=== PATIENT | male | born 1990 | race Caucasian/White ===

== ENCOUNTER 2019-10-19 12:29 | Emergency (ER) | payer OTHER, SELFPAY ==
--- NOTE | ~2019-10-19 | XR_ITS ---
EXAMINATION: XR chest 1V portable EXAM DATE: 10/19/2019 13:36 INDICATION: Vomiting blood. Abdominal pain, diarrhea since Saturday. Dizziness. TECHNIQUE: Portable AP frontal chest x-ray was obtained. There is no prior study for comparison. FINDINGS: The lungs are clear. There are no pleural effusions. The cardiomediastinal silhouette is within normal limits. There is no pneumothorax suspected. The bones and soft tissues are unremarkab le. IMPRESSION: No acute cardiopulmonary findings. Reviewed, dictated and finalized at location A.
[2019-10-19 12:43] VITALS: BP 135/70; PULSE 82; RESP 16; TEMP 36; O2SAT 97
[2019-10-19 13:22] LABS: Basophils Absolute Auto 0.1 K/mm3 (0.0-0.1); Hematocrit 42.9 % (42.0-52.0); Immature Granulocyte Absolute 0.03 K/mm3 (0.00-0.031); Immature Granulocyte Percent A 0.4 % (0-0.5); Lymphocytes Absolute Auto 1.93 K/mm3 (0.9-3.2); Lymphocytes Percent Auto 23.4 % (18.3-44.2); Mean Platelet Volume 10.1 fl (7.4-10.4); Monocytes Absolute Auto 0.6 K/mm3 (0.1-0.6); Neutrophils Absolute Auto 4.6 K/mm3 (1.3-6.7); Neutrophils Percent Auto 56.2 % (45.5-73.1); Platelet Count Result 205 k/mm3 (150-375); Red Blood Count 5.17 M/mm3 (4.6-6.20); Red Cell Distribution Width 11.9 % (11.5-14.5); White Blood Count 8.3 K/mm3 (4.5-10.0)
[2019-10-19 13:23] LABS: Add Urine Microscopic? NO; Appearance Urine Clear (Clear); Bilirubin Urine Negative (Negative); Blood Urine Negative (Negative); Color Urine Straw (Yellow); Glucose Urine UA Negative (Negative); Ketones Urine Negative (Negative); Leukocyte Esterase Ur Negative LEU/UL (Negative); Nitrate Urine Negative (Negative); Protein Urine Negative (Negative); Specific Grav Ur 1.015 (1.001-1.035); Urobilinogen Urine Negative mg/dL (<2.0)
[2019-10-19 13:33] LABS: Alanine Aminotransferase 18 U/L (4-50); Albumin Level 4.4 g/dL (3.5-5.1); Alkaline Phosphatase 94 U/L (38-126); Aspartate Amino Transferase 24 U/L (17-59); Bilirubin,Total 0.2 mg/dL (0.2-1.3); Blood Urea Nitrogen 13 mg/dL (9-20); Calcium 8.7 mg/dL (8.4-10.2); Carbon Dioxide 26 mmol/L (22-30); Chloride 105 mmol/L (98-107); Estimated CRCL calculation 167 ml/min; Estimated Glomerular Filt Rate > 60; Glucose 99 mg/dL (75-110); Lipase 215 U/L (23-300); Sodium 140 mmol/L (137-145)
[2019-10-19 13:40] VITALS: BP 129/71; PULSE 63
[2019-10-19 13:42] VITALS: BP 124/78; PULSE 87
[2019-10-19 13:44] VITALS: BP 125/77; PULSE 81
[2019-10-19] MEDS: ONDANSETRON INJ 4 MG/2 ML VIAL IV PUSH (13:44)
[2019-10-19] MEDS: LACTATED RINGERS 1,000 ML 999 ML IV CONT ×3 (13:44→15:34)
--- NOTE | 2019-10-19 14:23 | ED.NAVMDI ---
HPI - Nausea/Vomiting/Diarrhea General Chief complaint: Nausea/Vomiting/Diarrhea Stated complaint: vomiting Time Seen by Provider: 10/19/19 12:58 Source: patient Mode of arrival: ambulatory Limitations: no limitations History of Present Illness HPI Narrative: This patient is a 29 year old male who presents for evaluation of nausea, vomiting and diarrhea. Patient initially developed symptoms on Saturday. He reports nausea, vomiting, dizziness, and diarrhea. He has intermittent abdominal pain described as cramping. His symptoms resolved on Saturday and . Again today, he develop nausea and vomiting. His first bout of emesis today was nonbilious with mucous with blood streaks. His second episode of emesis did not have blood. He denies having blood in his stool, and he develop fever or chills. His also complaining of lightheadedness with standing. MD elicited complaint: nausea, vomiting and diarrhea Related Data Home Medications Medication Instructions Recorded Confirmed Zyrtec 10/19/19 10/19/19 Allergies Allergy/AdvReac Type Severity Reaction Status Date / Time No Known Allergies Allergy Verified 10/19/19 12:47 Review of Systems Review of Systems: All systems reviewed & are unremarkable except as noted in HPI and below Constitutional: Constitutional: Denies chills, Denies fever(s) and Reports weakness ENT: Reports dizziness and Denies nasal congestion Respiratory: Respiratory: Reports cough, Denies dyspnea and Denies wheezing Gastrointestinal: Gastrointestinal: Reports abdominal pain, Reports diarrhea, Reports nausea and Reports vomiting PMFSH Past Medical History Medical History (Updated 10/19/19 @ 16:07 by Helen Mandujano MD) Patient denies medical problems Surgical History Surgical History (Updated 10/19/19 @ 14:24 by Helen Mandujano MD) No pertinent past surgical history Social History Social History (Updated 10/19/19 @ 14:24 by Helen Mandujano MD) Smoking status: Never smoker Alcohol use details: socially Substance use type: marijuana Gender identity (if verbalized by the patient): Male Exam Narrative: Exam Narrative: GENERAL: Well-appearing, well-nourished, and in no acute distress. HEAD: Normocephalic, atraumatic EYES: PERRLA and EOMI, conjunctiva clear without discharge EARS: TM's clear bilaterally without erythema or dullness NOSE: Nares clear, no rhinorrhea or epistaxis THROAT:Mucous membranes moist, Oropharynx normal without erythema, exudate, peritonsillar swelling or fluctuance NECK: Supple, without lymphadenopathy or mass RESPIRATORY: No respiratory distress, Airway patent, Respirations non-labored, Clear to auscultation without rales, rhonchi or wheeze HEART: Regular rate and rhythm. No murmur heard. Normal peripheral pulses. ABDOMEN: Soft, nontender, nondistended, normal active bowel sounds. No masses. No rebound or guarding, No organomegaly. EXTREMITIES: No edema, normal strength with full range of motion. SKIN: Warm, dry, normal color without rash NEURO: Alert and oriented x3. CN 2-12 grossly intact. No focal deficits. PSYCH: Normal mood and affect. Course Reevaluation(s) Reevaluation #1: Patient states he feels better and he will follow up with PCP tomorrow. Date: 10/19/19 Time: 16:06 Vital Signs Vital signs: Vital Signs Temperature 96.8 F L 10/19/19 12:43 Pulse Rate 82 10/19/19 12:43 Respiratory Rate 16 10/19/19 12:43 Blood Pressure 135/70 10/19/19 12:43 Pulse Oximetry 97 10/19/19 12:43 Temperature 97.4 F L 10/19/19 16:34 Pulse Rate 71 10/19/19 16:34 Respiratory Rate 16 10/19/19 16:34 Blood Pressure 136/88 10/19/19 16:34 Pulse Oximetry 97 10/19/19 16:34 MDM - Nausea/Vomiting/Diarrhea Lab Data Result diagrams: 10/19/19 13:13 10/19/19 13:13 Labs: Lab Results 10/19/19 10/19/19 10/19/19 Range/Units 13:13 13:13 13:14 WBC 8.3 (4.5-10.0) K/mm3 RBC
[2019-10-19] MEDS: PANTOPRAZOLE SODIUM IV 40 MG VIAL IV PUSH (14:24)
[2019-10-19 14:50] LABS: INR 0.9; Partial Thromboplastin Time 28.2 SECONDS (22.3-36.8); Prothrombin Time 12.1 Seconds (11.1-14.7)
[2019-10-19] MEDS: MECLIZINE HCL 25 MG TABLET PO (15:34)
[2019-10-19 16:34] VITALS: BP 136/88; PULSE 71; RESP 16; TEMP 36.3; O2SAT 97
== END 2019-10-19 16:37 | disposition home or self-care (01) ==
PROVIDERS: Emergency Provider General Practice; PCP Family Medicine
DX: K52.9 Noninfective gastroenteritis and colitis, unspecified (principal); E86.0 Dehydration
CPT/HCPCS: 36415; 71045; 80053; 81003; 83690; 85025; 85610; 85730; 86850; 86900; 86901; 96361; 96374; 96375; 99284; A9270; C9113; J2405; J7120

== ENCOUNTER 2023-02-07 10:09 | Emergency (ER) | payer OTHER, SELFPAY ==
[2023-02-07] MEDS: SODIUM CHLORIDE 0.9% IV 1,000 ML 999 ML IV CONT (10:38)
[2023-02-07] MEDS: diazePAM INJ (*CRX) 10 MG/2 ML SYRINGE 5 MG IV PUSH (10:39)
[2023-02-07] MEDS: ONDANSETRON INJ 4 MG/2 ML VIAL IV PUSH (10:40)
[2023-02-07 10:46] VITALS: BP 137/87; PULSE 94; RESP 20; TEMP 36.8; O2SAT 100
[2023-02-07 10:57] VITALS: BP 140/101; PULSE 73; RESP 16; O2SAT 100
--- NOTE | 2023-02-07 10:57 | ECG_ITS ---
Measurements Intervals [place] Rate: 70 P: 51 IA: 152 QRS: 28 QRSD: 116 T: 14 QT: 383 QTc: 414 Interpretive Statements SINUS RHYTHM EARLY PRECORDIAL R/S TRANSITION CONSIDER INFERIOR INFARCT, AGE INDETERMINATE ABNORMAL ECG NO PREVIOUS ECG AVAILABLE FOR COMPARISON Electronically Signed On 02-07-2023 11:53:06 CDT by [place] Youssef D.O.
[2023-02-07 12:00] VITALS: BP 133/79; PULSE 73; RESP 16; O2SAT 98
[2023-02-07 13:00] VITALS: BP 139/85; PULSE 80; RESP 16; O2SAT 97
[2023-02-07 13:46] LABS: Basophils Absolute Auto 0.1 K/mm3 (0.0-0.1); Basophils Percent Auto 0.6 % (0.2-1.2); Eosinophils Absolute Auto 0.6 K/mm3 (0-0.3); Eosinophils Percent Auto 5.9 % (0-4.4); Hematocrit 46.9 % (42.0-52.0); Hemoglobin 16.1 g/dL (14.0-18.0); Immature Granulocyte Absolute 0.04 K/mm3 (0.00-0.031); Immature Granulocyte Percent A 0.4 % (0-0.5); Lymphocytes Absolute Auto 1.59 K/mm3 (0.9-3.2); Lymphocytes Percent Auto 16.8 % (18.3-44.2); Mean Corpuscular HGB Conc 34.3 g/dl (32-36); Mean Corpuscular Hemoglobin 29.5 pg (26-34); Mean Corpuscular Volume 85.9 fl (80-100); Mean Platelet Volume 11.5 fl (7.4-10.4); Monocytes Absolute Auto 0.8 K/mm3 (0.1-0.6); Monocytes Percent Auto 8.1 % (2.6-8.5); Neutrophils Absolute Auto 6.5 K/mm3 (1.3-6.7); Neutrophils Percent Auto 68.2 % (45.5-73.1); Platelet Count Result 264 k/mm3 (150-375); Red Blood Count 5.46 M/mm3 (4.6-6.20); White Blood Count 9.5 K/mm3 (4.5-10.0)
[2023-02-07 13:56] LABS: Alanine Aminotransferase 44 U/L (6-50); Albumin Level 4.7 g/dL (3.5-5.1); Alkaline Phosphatase 85 U/L (38-126); Anion Gap 15 mmol/L (8-16); Aspartate Amino Transferase 34 U/L (17-59); Bilirubin,Total 0.7 mg/dL (0.2-1.3); Blood Urea Nitrogen 12 mg/dL (9-20); Calcium 9.6 mg/dL (8.4-10.2); Carbon Dioxide 21 mmol/L (22-30); Chloride 105 mmol/L (98-107); Estimated CRCL calculation 180 ml/min; Estimated Glomerular Filt Rate > 60; Glucose 87 mg/dL (65-110); Potassium 3.5 mmol/L (3.4-5.0); Sodium 141 mmol/L (137-145)
[2023-02-07 14:00] VITALS: BP 136/79; PULSE 85; RESP 18; TEMP 36.7; O2SAT 98
--- NOTE | 2023-02-07 14:13 | ED.DIZZY ---
HPI - Dizziness General Chief Complaint: Dizziness Stated Complaint: vertigo Time Seen by Provider: 02/07/23 11:49 History of Present Illness HPI Narrative: Patient is a 33-year-old male who presents ER with sudden onset dizziness. Has history of BPPV and this felt the same. Associate with diaphoresis as well as nausea vomiting and rhinorrhea. Symptoms are usually worse when he has allergy type symptoms. Reports he tried taking some home meclizine was down for about 30 minutes prior to starting to have dry heaves. No chest pain or chest pressure. No focal weakness or numbness in arm or leg. No slurred speech. Related Data Home Medications Medication Instructions Recorded Confirmed Zyrtec 10/19/19 10/19/19 Allergies Allergy/AdvReac Type Severity Reaction Status Date / Time No Known Allergies Allergy Verified 10/19/19 12:47 Review of Systems Review of Systems: All systems reviewed & are unremarkable except as noted in HPI and below Constitutional: Constitutional: Denies chills, Denies fatigue and Denies fever(s) Eyes: Eyes: Denies change in vision and Denies photophobia ENT: Reports dizziness, Reports nasal congestion and Denies sore throat Cardiovascular: Cardiovascular: Denies chest pain, Denies rapid heart rate and Denies radiating jaw, neck or arm pain Respiratory: Respiratory: Denies cough, Denies dyspnea and Denies wheezing Gastrointestinal: Gastrointestinal: Denies abdominal pain, Reports nausea and Reports vomiting Neurologic: Reports dizziness, Denies syncope, Denies headache(s), Denies focal weakness and Denies numbness PMFSH Past Medical History Medical History (Updated 02/07/23 @ 14:17 by Remington Pizano MD) BPPV (benign paroxysmal positional vertigo) Surgical History Surgical History (Updated 10/19/19 @ 14:24 by Helen Mandujano MD) No pertinent past surgical history Social History Social History (Updated 10/19/19 @ 14:24 by Helen Mandujano MD) Smoking status: Never smoker Alcohol use details: socially Substance use type: marijuana Gender identity (if verbalized by the patient): Male Exam Narrative: GENERAL: Well-appearing, well-nourished, and in no acute distress. HEAD: Normocephalic, atraumatic. EYES: PERRL and EOMI. no nystagmus ENT: Mucous membranes moist. TMs normal bilaterally. CHEST: Clear to auscultation. No respiratory distress. HEART: Regular rate and rhythm. Normal peripheral pulses. EXTREMITIES: Normal range of motion. No edema. SKIN: Warm, dry, no rash. NEURO: Alert and oriented x3. PSYCH: Normal mood and affect Course Course Emergency Course: Patient markedly improved with Valium and IV fluids. Patient felt appropriate for discharge. Labs reviewed and unremarkable. Vital Signs Vital signs: Vital Signs Temperature 98.3 F 02/07/23 10:46 Pulse Rate 94 02/07/23 10:46 Respiratory Rate 20 02/07/23 10:46 Blood Pressure 137/87 02/07/23 10:46 Pulse Oximetry 100 02/07/23 10:46 Oxygen Delivery Room Air 02/07/23 10:46 Temperature 98.3 F 02/07/23 10:46 Pulse Rate 73 02/07/23 10:57 Respiratory Rate 16 02/07/23 10:57 Blood Pressure 140/101 H 02/07/23 10:57 Pulse Oximetry 100 02/07/23 10:57 Oxygen Delivery Room Air 02/07/23 10:46 MDM - Dizziness Lab Data 02/07/23 13:39 02/07/23 13:39 Labs: Lab Results 02/07/23 Range/Units 13:39 WBC 9.5 (4.5-10.0) K/mm3 RBC 5.46 (4.6-6.20) M/mm3 Hgb 16.1 (14.0-18.0) g/dL Hct 46.9 (42.0-52.0) % MCV 85.9 (80-100) fl MCH 29.5 (26-34) pg MCHC 34.3 (32-36) g/dl RDW 12.0 (11.5-14.5) % Plt Count 264 (150-375) k/mm3 MPV 11.5 H (7.4-10.4) fl Immature Gran % (Auto) 0.4 (0-0.5) % Neut % (Auto) 68.2 (45.5-73.1) % Lymph % (Auto) 16.8 L (18.3-44.2) % Mckean % (Auto) 8.1 (2.6-8.5) % Eos % (Auto) 5.9 H (0-4.4) % Baso % (Auto) 0.6 (0.2-1.2) % Lymph # (Auto) 1.59 (0.9-3.2) K/mm3
== END 2023-02-07 14:39 | disposition home or self-care (01) ==
PROVIDERS: Emergency Medicine; Emergency Provider Emergency Medicine
DX: R42 Dizziness and giddiness (principal); R94.31 Abnormal electrocardiogram [ECG] [EKG]
CPT/HCPCS: 36415; 80053; 85025; 93005; 96361; 96374; 96375; 99284; J2405; J3360; J7030